=== PATIENT | male | born 1950 | race Caucasian/White ===

== ENCOUNTER 2020-08-11 09:56 | Emergency (ER) | payer MEDICARE, SELFPAY ==
[2020-08-11] VITALS (10 sets, daily range): BP systolic 122–200; BP diastolic 74–140; PULSE 45–108; RESP 15–18; TEMP 36.3; O2SAT 93–100; BMI 34.0
--- NOTE | 2020-08-11 10:26 | CT_ITS ---
WS: [id number] CT HEAD NONCONTRAST HISTORY: headache TECHNIQUE: Contiguous axial imaging performed through the brain in 2.5 mm imaging. Bone and soft tiss ue windows. Sagittal and coronal reformats reviewed. All CT scans at [facility] use at ast one of these dose optimization techniques: automated exposure control; mA and/or kV adjustment pe r patient size (includes targeted exams where dose is matched to clinical indication); or iterative r econstruction. DLP: 847.62 mGy.cm COMPARISON: None available. There is a large subarachnoid hemorrhage filling the basilar cisterns in the ambient cisterns and ext ending into the subarachnoid spaces of the occipital lobes and parafalcine above the lateral ventricl es. Suspect there may be a small amount of blood in the RIGHT occipital horn. Blood extends inferiorl y in the prepontine space and partially encasing the upper cervical spine. Blood extends into the sub arachnoid spaces of the temporal lobes. No significant midline shift. Ventricles: No significant hydrocephalus. Suspicious for small amount of intraventricular blood in t he posterior RIGHT lateral ventricle. Hemorrhage in the interpeduncular cisterns. Paranasal sinuses: As visualized are clear. Mastoid air cells: Well pneumatized. Calvarium and scalp: Skull is intact with no soft tissue edema or swelling. CT/CT head wo con* [id number] IMPRESSION: 1. Large subarachnoid hemorrhage centered near the ambient cisterns and estuardo geminal cisterns. Hemorrhage extends around the upper brainstem into the interp eduncular cistern and into the subarachnoid spaces posteriorly. Suspicious for small amount of intraventricular hemorrhage RIGHT occipital horn. Suspect ruptu red aneurysm, most likely at the basilar tip or distal carotid arteries. 2. No significant midline shift. No hydrocephalus at this time. Notified Dr. Allan at 08/11/2020 11:45 AM.
[2020-08-11 10:35] LABS: Basophils % 0.2 %; Eosinophils # 0.1 10^3/uL (0.0-0.8); Eosinophils % 0.4 %; Hematocrit 48.2 % (42.0-52.0); Hemoglobin 15.4 g/dL (11.7-16.6); Lymphocytes # 1.1 10^3/uL (0.8-4.8); Lymphocytes % 9.2 %; Mean Corpuscular Hemoglobin 29.4 pg (28.0-34.0); Mean Platelet Volume 11.1 fL (7.4-10.4); Monocytes # 0.7 10^3/uL (0.2-0.9); Neutrophils # 10.07 10^3/uL (1.8-7.7); Neutrophils % 83.9 %; Nucleated Red Blood Cells % 0 %; Platelet Count 186 10^3/cmm (130-400); Red Blood Count 5.24 10^6/uL (4.1-5.3); Red Cell Distribution Width 14.1 % (12.1-15.1)
[2020-08-11] MEDS: cloNIDine 0.1 mg Tablet PO (10:49)
[2020-08-11] MEDS: amlodipine 10 mg Tablet PO (10:49)
[2020-08-11 11:09] LABS: Alanine Aminotransferase 25 U/L (0-41); Albumin Level 4.4 g/dL (3.5-5.2); Alkaline Phosphatase 72 IU/L (40-130); Anion Gap 14.9 (5-19); Aspartate Amino Transferase 18 U/L (0-40); Blood Urea Nitrogen 19 mg/dL (8-23); Carbon Dioxide 25 mmol/L (22-29); Chloride 103 mmol/L (98-107); Globulin 2.8 g/dL (1.3-4.6); Glomerular Filtration Rate 96.4 mL/min (90-130); Glucose 134 mg/dL (65-115); Osmolality Calculated 292 mOsm/kg (285-295); Potassium 3.9 mmol/L (3.5-5.1); Sodium 139 mmol/L (136-145); Total Bilirubin 0.6 mg/dL (0.15-1.2); Total Protein 7.2 g/dL (6.6-8.7)
[2020-08-11] MEDS: nicardipine 20 MG/200 ML PREMIX 50 MG IV (12:10)
--- NOTE | 2020-08-11 12:29 | W.ED.DIZZY ---
HPI - Dizziness General: Chief Complaint: Dizziness Stated Complaint: N/V, HEADACHE, BLURRED VISION, DIZZINESS Time Seen by Provider: 08/11/20 10:00 History of Present Illness: HPI Narrative: 69-year-old male presents emergency room sudden onset of pain in his neck and the base of the skull radiating up. Began suddenly while he is at rest and caused visual changes he still is having a headache. Also noted an elevated blood pressure began this morning suddenly at 7 AM. He denies any chest pain. He denies any history of neck problems he denied difficulty speaking or swallowing. MD elicited complaint: dizziness, lightheadedness and vertigo Onset (ago): hour(s) Timing: sudden onset Severity: severe Description: sense of movement, lightheadedness, off-balance and difficulty walking Exacerbating factors: movement/ambulation, change in body position and exertion Relieving factors: remaining still and lying down Associated symptoms: Reports abnormal vaginal bleeding, ear pressure and weakness; Denies change in hearing, chest pain, chills, cough, diaphoresis, ear discharge, fevers/chills, headache(s), malaise, nausea, nasal congestion, palpitations, rash, short of breath, syncope, tinnitus or vomiting Associated neuro symptoms: Reports extremity weakness and visual changes; Deny confusion, difficulty speaking, dysphagia, diplopia, facial numbness, facial weakness, gait changes or numbness in extremities Review of Systems Const: Denies: chills, malaise or diaphoresis ENMT: Denies: ear discharge, change in hearing, tinnitus or nasal congestion Card: Denies: chest pain, palpitations or syncope Resp: Denies: dyspnea, productive cough or non-productive cough GI: Denies: nausea, vomiting or dysphagia : Denies: flank pain, dysuria, urinary frequency or urinary urgency Skin/Breast: Denies: rash or pruritus Neuro: Denies: headache(s), numbness in extremities or confusion PFS ED PFSH: Medical History (Updated 08/11/20 @ 12:46 by Zurdo Khan DO) HTN (hypertension) Social History Smoking and tobacco status: never smoked Alcohol intake: never Physical Exam Const: COMMON NORMALS: no acute distress GENERAL APPEARANCE: cooperative and comfortable ORIENTATION/CONSCIOUSNESS: Yes awake, Yes oriented to person, Yes oriented to place and Yes oriented to time HENMT: COMMON NORMALS: normocephalic, atraumatic and hearing grossly normal bilaterally HEAD & SCALP: normocephalic and atraumatic Neck/C-Spine: COMMON NORMALS: no JVD Resp: COMMON NORMALS: normal respiratory effort, No retractions, No use of accessory muscles and clear to auscultation bilaterally AUSCULTATION: clear to auscultation bilaterally Cardio: COMMON NORMALS: no JVD, regular rate, regular rhythm and No murmurs present (Cardio) RATE: regular rate RHYTHM: regular rhythm GI: COMMON NORMALS: Soft to palpation and No hepatosplenomegaly present AUSCULTATION: Yes normoactive bowel sounds PALPATION: Yes Soft to palpation, No Tenderness to palpation present (GI), No Guarding due to palpation present (GI) and Yes No hepatosplenomegaly present Extremity: COMMON NORMALS: normal to inspection, capillary refill normal, no clubbing, cyanosis or edema, no calf tenderness and no pedal edema Neuro: SENSORIUM/ORIENTATION: Yes oriented to person, Yes oriented to place and Yes oriented to time Skin: COMMON NORMALS: no rashes or lesions noted GENERAL SKIN EXAM: no rashes or lesions noted Course Vital Signs: Vital signs: Vital Signs Temperature 97.4 F L 08/11/20 10:01 Pulse Rate 108 H 08/11/20 16:04 Respiratory Rate 18 08/11/20 16:04 Blood Pressure 122/74 08/11/20 16:04 Pulse Oximetry 94 08/11/20 16:04 MDM - Dizziness MDM Narrative: Medical decision making narrative: CT shows subarachnoid hemorrhage. We are making arrangements for transfer is still significant hypertensive has been started on a nicardipine drip to aggressively control blood pressure. Were making urine arrangements for transfer however due to pandemic is very difficult [facility] has agreed to take him but they do not have any beds currently available and I do not office and they will have a bed available we will continue to search. Also going to load him with Keppra. Patient blood pressure was controlled with a combination of nicardipine and then labetalol was added. With a MAP of less than 10 or systolic less than 140 is at goal. Patient did become sedated at times but had no further neurologic deterioration. Patient be transferred by fixed wing to [facility]. I discussed with receiving neurosurgery there. Lab Data: Labs: Lab Results 08/11/20 08/11/20 08/11/20 Range/Units 10:15 10:15 13:20 WBC 12.0 H (4.0-10.0) 10^3/ uL RBC 5.24 (4.1-5.3) 10^6/u L Hgb 15.4 (11.7-16.6) g/dL Hct 48.2 (42.0-52.0) % MCV 92.0 (80-94) fL MCH 29.4 (28.0-34.0) pg MCHC 32.0 (30.0-36.0) g/dL RDW 14.1 (12.1-15.1) % Plt Count 186 (130-400) 10^3/c mm MPV 11.1 H (7.4-10.4) fL Neut % (Auto) 83.9 % Lymph % (Auto) 9.2 % Darke % (Auto) 6.0 % Eos % (Auto) 0.4 % Baso % (Auto) 0.2 % Neut # (Auto) 10.07 H (1.8-7.7) 10^3/u L Lymph # (Auto) 1.1 (0.8-4.8) 10^3/u L Darke # (Auto) 0.7 (0.2-0.9) 10^3/u L Eos # (Auto) 0.1 (0.0-0.8) 10^3/u L Baso # (Auto) 0.0 (0.0-0.1) 10^3/u L Nucleated RBC % (a uto) 0 % Nucleated RBCs # 0.0 /100WBC Sodium 139 (136-145) mmol/L Potassium 3.9 (3.5-5.1) mmol/L Chloride 103 (98-107) mmol/L Carbon Dioxide 25 (22-29) mmol/L Anion Gap 14.9 (5-19) BUN 19 (8-23) mg/dL Creatinine 0.8 (0.7-1.2) mg/dL GFR Calculation 96.4 (90-130) mL/min Glucose 134 H (65-115) mg/dL Calculated Osmolal ity 292 (285-295) mOsm/k g Calcium 9.0 (8.5-10.5) mg/dL Total Bilirubin 0.6 (0.15-1.2) mg/dL AST 18 (0-40) U/L ALT 25 (0-41) U/L Alkaline Phosphata se 72 (40-130) IU/L Total Protein 7.2 (6.6-8.7) g/dL Albumin 4.4 (3.5-5.2) g/dL Globulin 2.8 (1.3-4.6) g/dL SARS-CoV-2 Ag (Rap id) Negative (Negative) Discharge Plan Discharge Patient Disposition: Transfer to ED Clinical Impression: Subarachnoid hemorrhage, Accelerated essential hypertension Condition: Stable Prescriptions: No Action No Known Home Medications RF: 0 Referrals: Lambert Alston MD [Primary Care Provider] - Coding Level of Care Code ED Link [employer] for [employer] Fwd Exam Comprehensive
--- NOTE | 2020-08-11 12:40 | CT_ITS ---
WS: [id number] CT ANGIOGRAM CEREBRAL AND CAROTID ARTERIES HISTORY: SA hemorrhage TECHNIQUE: CT angiogram is performed of the carotid and cerebral arteries. During arterial injection imaging is obtained from the skull vertex to the aortic arch in 1.25 mm imaging. Coronal and sagittal reformats are submitted. Additional multi planar reformats of the carotid and cerebral arteries are submitted, MIP imaging also reviewed. NASCET criteria utilized. All CT scans at [facility] use at least one of these dose optimization techniques: automated exposure control; mA and/or kV ad justment per patient size (includes targeted exams where dose is matched to clinical indication); or iterative reconstruction. CONTRAST: Omnipaque 350; 95 mL IV. DLP: 2384.12 mGy.cm COMPARISON: Noncontrast CT head Carotid Angiogram: Right carotid: Common carotid artery: Arises normally from the innominate artery. No significant plaque or stenosis. Internal carotid artery: Intimal thickening. No stenosis. External carotid artery: Patent. Left carotid: Common carotid artery: Arises normally from the aorta. No significant plaque or stenosis. Internal carotid artery: Intimal thickening with no significant stenosis. External carotid artery: Patent. Right vertebral artery: Unremarkable. Left vertebral artery: Small caliber but patent. Subclavian arteries: No stenosis or significant abnormality. Upper thorax: Severe emphysematous changes. Motion artifact. Thyroid gland: Normal. Osseous structures: Cervical spondylosis. CEREBRAL ANGIOGRAM: Intracranial vertebral arteries: Small caliber but patent. Component of spasm may be present as there is adjacent acute hemorrhage. Basilar artery: Basilar artery is intact. Thrombus and blood surrounding the basilar tip. No discrete aneurysm identified. Intracranial Internal carotid arteries: No significant stenosis or aneurysm identified. There is bloo d surrounding the middle cerebral arteries and the distal carotid arteries. Middle cerebral arteries: Intact with acute subarachnoid blood surrounding the arteries probably a co mponent of vasospasm. Anterior cerebral arteries and ACOM: Intact. The RIGHT A2 segment is being displaced to the RIGHT due to hematoma and blood. Posterior cerebral arteries and PCOM's: Intact. Dural venous sinuses are normally enhancing. CT/CT angio headneck* [id number] IMPRESSION: 1. Cannot definitely identified the ruptured aneurysm. The largest amount of t hrombus and blood around the basilar tip and along the anterior communicating c erebral artery. Middle cerebral arteries and the basilar artery appear to be in spasm. 2. Large subarachnoid hemorrhage. Notified Zurdo Khan DO at 08/11/2020 2:25 PM.
[2020-08-11] MEDS: iohexol 350 mg/mL 100 mL Btl IV (13:47)
[2020-08-11 14:19] LABS: SARS Covid-2 Antigen Negative (Negative)
[2020-08-11] MEDS: labetalol 300 MG in sodium chloride 0.9% 240 ML 30 MG IV (14:40)
[2020-08-11] MEDS: nicardipine 20 MG/200 ML PREMIX 150 MG IV ×2 (15:56→15:57)
== END 2020-08-11 16:05 ==
PROVIDERS: Emergency Provider Family Medicine; PCP Internal Medicine
DX: I60.9 Nontraumatic subarachnoid hemorrhage, unspecified (principal); I10 Essential (primary) hypertension
CPT/HCPCS: 12345; 70450; 70496; 70498; 80053; 85025; 87426; 96365; 96366; 96367; 96375; 99283; 99291; J1953; J3490; J7050; Q9967